=== PATIENT | male | born 1965 | race Caucasian/White ===

== ENCOUNTER 2018-10-12 09:54 | Day surgery (SDC) | payer OTHER ==
[2018-10-12] MEDS ORDERED: XYLOCAINE MPF 2% ONE (10:00)
[2018-10-12] MEDS ORDERED: DIPRIVAN 10 MG/ML IV ONE ×4 (10:04)
[2018-10-12] MEDS ORDERED: NACL 0.9% 1000 ML 1,000 ML IV SCH (11:00)
--- NOTE | 2018-10-12 11:49 | Procedure Note ---
Date of procedure: 10/12/18 Pre-op diagnosis: Epigastric Pain/ Colon Polyp Screening Post-op diagnosis: other (Mild,Distgal Esophagitis/ Gstritis/ No Peptic Ulcer Disease noted/ No Colon Polyps noted/ Solitary, Transverse Colon Lipoma/ Minor,Internal Hemorrhoid) Anesthesia: MAC Surgeon: JHON DAVIS Estimated blood loss: minimal Pathology: list Specimen disposition: to lab Condition: stable Disposition: same day (Treat PPI and prn Bentyl and OTC Probiotic. Avoid aspirin and NSAID for 5 days and follow up in 1 to 2 weeks ([phone]).)
[2018-10-12 12:19] VITALS: BP 141/69
--- NOTE | 2018-10-12 12:41 | Operative Report ---
PROCEDURE: Colonoscopy. INDICATIONS: This is a 52-year-old gentleman with an underlying history of hypertension, who had a colonoscopy done because of his age as part of colon polyp screening. DESCRIPTION OF PROCEDURE: Procedure was done after getting informed consent with MAC anesthesia. Initial rectal exam is unremarkable. Instrument was passed through the rectum onto the cecum, which was identified with ileocecal valve and appendiceal orifice. Visualization was fair to slightly poor in the proximal colon. This area was washed with copious amounts of water. No significant pathology was noted in the proximal colon. Most of the transverse colon showed normal mucosa. In the mid transverse colon, there was a lipoma noted. Photodocumentation and biopsies were obtained. Remaining part of the transverse colon, descending colon, and sigmoid showed normal mucosa and the rectum showed some minor internal hemorrhoids on the retroverted view. There is minimal bleeding from the biopsy sites. No complications associated with the procedure. ASSESSMENT: Colon polyp screening, no colon polyps noted, solitary lipoma in the transverse colon that was biopsied. Minor internal hemorrhoid. The patient will be asked to avoid aspirin and aspirin-related products for the next few days. There was minimal bleeding from the biopsy sites and no complications associated with the procedure. The patient will be asked to follow up in the office in 1-2 weeks' time and will be treated with PPI and p.r.n. dose of Bentyl because of the upper GI findings of esophagitis, gastritis and associated abdominal pain and would also be encouraged to take probiotic [id number] as directed. The patient will be asked to follow up in the office in 1-2 weeks' time. Brandy ESTRADA was in the room throughout the entirety of the procedure. JOB# [id number] TREY/ROSELIA
--- NOTE | 2018-10-12 12:44 | Operative Report ---
PROCEDURE: Esophagogastroduodenoscopy with biopsy. INDICATIONS FOR THE PROCEDURE: This is a 52-year-old gentleman with an underlying history of AP, who has lately been having some epigastric pain and discomfort. He has an underlying history of hypertension and mild obesity. He is on blood pressure medicine. Because of his epigastric pain, he had an EGD done to rule out for possible associated peptic ulcer disease. He denies any history of smoking or alcohol use. DESCRIPTION OF PROCEDURE: EGD was done after getting informed consent with MAC anesthesia. Instrument was passed through the hypopharynx into the esophagus, which showed some mild distal esophagitis. Stomach showed antral gastritis. Biopsy was done from the gastric antrum, angularis and gastric body to rule out for H. pylori and atrophic gastritis. The pylorus was patent. The duodenum in the first and second portion appeared normal. There was minimal bleeding from the biopsy sites, no complications associated with the procedure. ASSESSMENT: Epigastric pain, mild distal esophagitis, gastritis. No peptic ulcer disease noted. Patent pylorus. PLAN: To treat the patient with PPI per possible p.r.n. dose of Bentyl for the abdominal pain. Colonoscopy will be done as part of colon polyp screening. There is minimal bleeding from the biopsy sites. No complications associated with the procedure and RNBrandy was in the room throughout the entirety of the procedure. JOB# [id number] TREY/ROSELIA
== END 2018-10-12 09:55 | disposition home or self-care (01) ==
LOC: GIO 09:54
DX: Z12.11 Encounter for screening for malignant neoplasm of colon (principal); K20.9 Esophagitis, unspecified; K29.70 Gastritis, unspecified, without bleeding; K64.8 Other hemorrhoids; G47.33 Obstructive sleep apnea (adult) (pediatric); I10 Essential (primary) hypertension; E66.9 Obesity, unspecified; Z68.37 Body mass index [BMI] 37.0-37.9, adult; Z79.899 Other long term (current) drug therapy
CPT/HCPCS: 43239; 45380; 82962; 88305; 88342; J2704; J7030